=== PATIENT | male | born 1955 | race Hispanic/Latino ===

== ENCOUNTER 2020-08-12 05:11 | Observation (INO) | payer BC ==
[2020-08-12] VITALS (14 sets, daily range): BP systolic 97–221; BP diastolic 61–124
[~2020-08-12] VITALS: Ht 170.2 cm; Wt 76.0 kg
[~2020-08-12 05:11] MED LIST: CRESTOR5 MG PO; LISINOPRIL5 MG PO; LOVASTATIN10 M1 PO; METFORMIN1000 MG PO
--- NOTE | 2020-08-12 05:15 | NUR ---
PT AMBULATORY TO ROOM # 13 FOR BEDSIDE TRIAGE, ACCOMPANIED BY DAUGHTER.
[2020-08-12] MEDS ORDERED: LISINOPRIL10 MG PO (05:33)
[2020-08-12] MEDS ORDERED: METFORMIN500 M2 PO (05:33)
[2020-08-12] MEDS ORDERED: ATORVASTATIN CA20 MG PO (05:33)
[2020-08-12 05:42] LABS: HEMATOCRIT 45.9 % (39.0-50.0); HEMOGLOBIN 15.1 g/dl (14.0-18.0); IMMATURE GRANULOCYTES 0.2 % (0.0-5.0); MEAN CELL VOLUME 90.2 fL CALC (80.0-100.0); MEAN CORPUSCULAR HGB 29.7 pG CALC (26.0-32.0); MEAN CORPUSCULAR HGB CONC 32.9 g/dL CAL (32.0-36.0); NEUT# 3.53 thou/uL (1.82-7.42); RED BLOOD COUNT 5.09 mill/uL (4.70-6.10); RED CELL DISTRI WIDTH 12.8 % (11.5-15.5)
[2020-08-12] MEDS ORDERED: GLIPIZIDE PO (05:44)
[2020-08-12 05:55] LABS: ALBUMIN 4.4 g/dL (3.2-5.0); ALKALINE PHOSPHATASE 76 u/l (38-126); ANION GAP 12 (6-22 (CALC)); BILIRUBIN, TOTAL 0.4 mg/dL (0.0-1.4); BUN 16 mg/dL (8-23); CARBON DIOXIDE 30 mmol/l (22-30); CHLORIDE 100 mmol/l (95-108); ETHYL ALCOHOL 0 mg/dl (0-30); LIPASE 85 u/l (23-300); SGOT/AST 20 u/l (19-48); SODIUM 137 mmol/l (137-146); TOTAL PROTEIN 7.8 g/dL (6.3-8.2)
[2020-08-12 06:01] LABS: ACT PARTIAL THROMBO TIME 22.2 SECONDS (20.0-32.5); PROTHROMBIN TIME 9.9 SECONDS (9.0-12.5)
[2020-08-12 06:18] LABS: URINE BILIRUBIN - DIPSTICK NEGATIVE (NEGATIVE); URINE BLOOD DIPSTICK NEGATIVE (NEGATIVE); URINE COLOR YELLOW; URINE GLUCOSE - DIPSTICK >=1000 mg/dL (NEGATIVE); URINE KETONE NEGATIVE (NEGATIVE); URINE LEUK ESTERASE NEGATIVE (NEGATIVE); URINE PROTEIN - DIPSTICK NEGATIVE (NEG-TRACE); URINE UROBILINOGEN - DIPSTICK 0.2 E.U./dL (0.2)
[2020-08-12 06:20] LABS: BUN/CREATININE RATIO 16 (12-20 (CALC)); GFR > 60 ML/MIN (>=60 (CALC)); GFR FOR AFR.AMER. > 60 ML/MIN (>=60 (CALC))
[2020-08-12 06:21] LABS: URINE NITRITE - DIPSTICK NEGATIVE (Negative)
--- NOTE | 2020-08-12 06:46 | NUR ---
DENIES NAUSEA AND DIZZINESS AT THIS TIME
--- NOTE | 2020-08-12 06:53 | NUR ---
REPORT GIVEN TO MITCH OLSON
--- NOTE | 2020-08-12 07:00 | NUR ---
[facility]
--- NOTE | 2020-08-12 08:09 | NUR ---
PT RESTING IN ROOM. NO DISTRESS NOTED.
--- NOTE | 2020-08-12 10:00 | NUR ---
PT TO ICU BED 6 VIA STRETCHER ACCOMPANIED BY ER NURSE. PT ABLE TO MBULATE TO BED WITH STEADY GAIT. PT IS ALERT AND ORIENTED X3. ADMISSION ASSESSMENT COMPLETED AT THIS. NIH COMPLETED AT THIS TIME. ORTHOSTATIC VITAL SIGNS OBTAINED. LYING BP 175/103 HEART RATE 60. SITTING BP 180/94 HR 64. STANDING BP 221/124 HR 95. PT ORIENTED TO ROOM AND UNIT. CALL LIGHT IN REACH. FAMILY DROPPED OFF FOOD. FOOD PLACED IN ROOM. EDCATION PROVIDED ON DIABETIC DIET. ALL FINDING REPORTED TO DR GANDARA. CALL LIGHT IN REACH. WILL CONTINUE TO MONITOR.
[2020-08-12 10:43] LABS: CHOLESTEROL HDL RATIO 3.5 (<4.4 (CALC))
--- NOTE | 2020-08-12 11:00 | NUR ---
DR GANDARA AT BEDSIDE AT THIS TIME.
--- NOTE | 2020-08-12 11:41 | NUR ---
CAR REPAIR SUPERVISOR AT BEDSIDE AT THIS TIME.
--- NOTE | 2020-08-12 12:06 | NUR ---
PT TO MRI VIA WHEELCHAIR ACCOMPANIED BY MACHINE SORTER.
--- NOTE | 2020-08-12 12:35 | NUR ---
PT RETURNS FROM MRI AT THIS TIME.
--- NOTE | 2020-08-12 12:49 | NUR ---
Attempted to see patient for evaluation. Patient off the floor in MRI. Will re-attempt f/u later today as schedule allows. Discussed with RN.
--- NOTE | 2020-08-12 13:02 | NUR ---
OCCUPATIONAL THERAPY AT BEDSIDE AT THIS TIME
--- NOTE | 2020-08-12 14:00 | NUR ---
PT RESTING IN BED WITH EYES CLOSED. SPOUSE AT BEDSIDE AT THIS TIME.
--- NOTE | 2020-08-12 15:24 | NUR ---
SPEECH THERAPY AT BEDSIDE AT THIS TIME,
--- NOTE | 2020-08-12 16:17 | NUR ---
PT RESTING IN BED RESP ARE EVEN AND UNLABORED. NO DISTRESS NOTED. CALL LIGHT IN REACH. WILL CONTINUE TO MONITOR.
--- NOTE | 2020-08-12 19:40 | NUR ---
BEDRESTING-WATCHING TV. HAS JEANS ON. DID NOT WANT TO REMOVE BECAUSE IT IS COLD. ADJUSTED THERMOSTAT FOR PATIENT. DENIES WEAKNESS,
--- NOTE | 2020-08-12 21:10 | NUR ---
BEDRESTING. DOZING. DECLINED SURFAK HE IS HAVING NORMAL BM. OTHERWISE, TOOK MEDICATION WITH EASE
--- NOTE | 2020-08-12 21:58 | NUR ---
BEDRESTING. LIGHTS OUT
[2020-08-13] VITALS (9 sets, daily range): BP systolic 73–110; BP diastolic 51–70
--- NOTE | 2020-08-13 | NUR ---
bedresting. bradycardia continues-in 40's. however, pt denies feelings of dizziness or distress
--- NOTE | 2020-08-13 01:29 | NUR ---
B/P LOW- WAS RECHECKED AND WAS 85/52 BUT MEAN IS 61. PULSE 49. DOZING.
--- NOTE | 2020-08-13 03:40 | NUR ---
BEDRESTING. B/P AND PULSE REMAIN LOW PT RESTING. RESP EVEN AND NONLABORED. O2 SAT REMAINS 99%
--- NOTE | 2020-08-13 05:20 | NUR ---
BEDRESTING. NO DISTRESS NOTED.
--- NOTE | 2020-08-13 06:20 | NUR ---
BEDRESTING. RESP EVEN AND NONLABORED. B/P AND PULSE REMAIN LOW BUT MEANS GREATER THAN 60.
[2020-08-13] MEDS ORDERED: FLONASE AL50 MCG/ACT (07:11)
[2020-08-13] MEDS ORDERED: LORATADINE10 M1 PO (07:11)
[2020-08-13] MEDS ORDERED: DITROPAN5 MG/TA1 PO (07:11)
--- NOTE | 2020-08-13 07:11 | NUR ---
PT REPORT RECEIVED FROM MEDIA ASSISTANT. PT ALERT/ORIENTED 3, DENIES ANY COMPLAINTS AT THIS TIME. STATES SLEPT WELL.
[2020-08-13] MEDS ORDERED: LIPITOR20 M1 PO (07:12)
[2020-08-13] MEDS ORDERED: PIOGLITAZONE HY15 MG PO (07:12)
[2020-08-13] MEDS ORDERED: ASPIRIN ADULT L81 M2 PO (09:05)
[2020-08-13] MEDS ORDERED: METFORMIN500 M2 PO (09:05)
--- NOTE | 2020-08-13 09:05 | NUR ---
DR. GANDARA AT BEDSIDE.
--- NOTE | 2020-08-13 09:57 | NUR ---
PT NOTIFIED OF BEING DISCHARGED WITH INST. AND RX. ADVISED THAT HE NEEDED TO CALL SOMEONE FOR A RIDE , PT STATES THAT HE WILL
--- NOTE | 2020-08-13 10:47 | NUR ---
IV D/C'D AND PT WAITING ON TO BRING CLOTHES, PT DISCHARGE INSTRUCTIONS WITH RX GIVEN AND GONE OVER WITH PT. PT STATES UNDERSTANDING. WAITING ON FOR COMPLETE DISCHARGE
--- NOTE | 2020-08-13 11:23 | NUR ---
PTS BROUGHT CLOTHES, AND WILL TAKE PT OUT TO CAR PER W/C SOON DRESSED AND READY TO GO
== END 2020-08-13 11:35 | disposition home or self-care (01) | DRG 69 ==
LOC: ED 05:11 → ED-I 07:15 → ED 07:27 → ICU 07:28
PROVIDERS: Internal Medicine; ADMIT Internal Medicine; ATTEND Internal Medicine
DX: G45.9 Transient cerebral ischemic attack, unspecified (principal); I16.0 Hypertensive urgency; I10 Essential (primary) hypertension; E11.9 Type 2 diabetes mellitus without complications; E78.5 Hyperlipidemia, unspecified; T50.916A Underdosing of multiple unspecified drugs, medicaments and biological substances, initial encounter; Z91.128 Patient's intentional underdosing of medication regimen for other reason; Z79.84 Long term (current) use of oral hypoglycemic drugs; Z20.822 Contact with and (suspected) exposure to COVID-19
CPT/HCPCS: J1650; Q9967